=== PATIENT | male | born 1935 | race African-American/Black ===

== ENCOUNTER 2021-09-22 17:41 | Inpatient (IN) | payer MEDICARE, OTHER ==
[~2021-09-22] VITALS: Ht 180.3 cm; Wt 68.0 kg
[2021-09-22 23:02] LABS: BASOPHILS % 0.6 % (0.0-2.0); EOSINOPHILS % 0.1 % (0.0-5.0); HEMATOCRIT. 45.7 % (42.0-52.0); HEMOGLOBIN. 14.9 g/dL (14.0-18.0); LYMPHOCYTES % 19.3 % (20.0-50.0); MEAN PLATELET VOLUME 9.9 fl (7.4-10.4); MONOCYTES % 7.5 % (2.0-8.0); NEUTROPHILS % 72.5 % (40.0-76.0); PLATELET 165 x1000/uL (130-400); RED BLOOD CELL COUNT 5.13 mill/uL (4.7-6.1); RED CELL DISTRIBUTION WIDTH 13.1 % (11.6-14.6)
[2021-09-22 23:07] LABS: CHLORIDE 102 mEq/L (98-107)
[2021-09-23] MEDS ORDERED: MAGNESIUM CITRATE 300ML SOLUTION PO ONE (00:15)
[2021-09-23] MEDS ORDERED: LORAZEPAM 2MG/ML CPJ IV ONE (00:15)
[2021-09-23] MEDS ORDERED: SODIUM CHLORIDE 0.9% 1,000 ML IV ONE (00:30)
[2021-09-23 01:02] LABS: CLARITY URINE CLEAR (CLEAR); COLOR URINE YELLOW (YELLOW); KETONES URINE TRACE (NEGATIVE); LEUKOCYTE ESTERASE URINE NEGATIVE (NEGATIVE); NITRITE URINE NEGATIVE (NEGATIVE); OCCULT BLOOD URINE NEGATIVE (NEGATIVE); PROTEIN URINE 2+ (NEGATIVE); SPECIFIC GRAVITY URINE 1.012 (1.005-1.030); UROBILINOGEN URINE 0.2 E.U./dL (0.2-1.0)
[2021-09-23] MEDS ORDERED: BISA-81 MT (01:11)
[2021-09-23] MEDS ORDERED: BISACODYL 10MG SUPP PR ONE (01:15)
[2021-09-23] MEDS ORDERED: IOHEXOL-300 100 ML BOTTLE ONE (02:40)
[2021-09-23] MEDS ORDERED: NALOXONE HCL 1 MG/ML 2ML VIAL IV ONE (13:45)
[2021-09-23 16:00] VITALS: BP 174/60
[2021-09-23 16:11] VITALS: BP 174/60
[2021-09-23] MEDS ORDERED: AMLO2.5T45 MT (16:28)
[2021-09-23] MEDS ORDERED: GABA250S2 PO (16:28)
[2021-09-23] MEDS ORDERED: TOPUD MT (16:28)
[2021-09-23 20:00] VITALS: BP 161/59
[2021-09-23] MEDS ORDERED: ACETAMINOPHEN 325MG TABLET PO PRN (20:15)
[2021-09-23] MEDS ORDERED: NALOXONE HCL 0.4MG/ML VIAL IV PRN (20:30)
[2021-09-23] MEDS ORDERED: CLONIDINE 0.2MG TABLET PO PRN (22:45)
[2021-09-24] VITALS: BP 138/63
[2021-09-24] MEDS ORDERED: CLONIDINE 0.2MG TABLET PO SCH
[2021-09-24] MEDS: DEXT 5%/0.45% NACL 1000ML 1,000 ML IV SCH ×3 (00:18→23:08)
[2021-09-24 04:00] VITALS: BP 119/76
[2021-09-24 07:14] LABS: CHLORIDE 103 mEq/L (98-107)
[2021-09-24 07:15] LABS: BASOPHILS % 0.2 % (0.0-2.0); EOSINOPHILS % 0.1 % (0.0-5.0); HEMATOCRIT. 40.9 % (42.0-52.0); HEMOGLOBIN. 13.3 g/dL (14.0-18.0); MEAN CORPUSCULAR HEMOGLOBIN 28.6 pg (28.0-32.0); MEAN CORPUSCULAR VOLUME 87.8 fL (80.0-94.0); MEAN PLATELET VOLUME 10.1 fl (7.4-10.4); MONOCYTES % 8.9 % (2.0-8.0); NEUTROPHILS % 73.8 % (40.0-76.0); PLATELET 173 x1000/uL (130-400); RED BLOOD CELL COUNT 4.66 mill/uL (4.7-6.1)
[2021-09-24 08:00] VITALS: BP 120/66
[2021-09-24] MEDS: ENOXAPARIN 40MG/0.4ML SYR SUBCUT SCH (09:00)
[2021-09-24] MEDS: AMLODIPINE 10MG TABLET PO SCH (10:26)
[2021-09-24] MEDS: HYDROCODONE/ACETAMINOPHEN 5/325MG TABLET PO PRN (10:32)
[2021-09-24 12:00] VITALS: BP 150/61
[2021-09-24] MEDS ORDERED: NA PHOS,M-B/NA PHOS,DI-BA ENEMA 118ML PR NR (12:30)
[2021-09-24] MEDS ORDERED: BISACODYL 10MG SUPP PR NR (12:30)
[2021-09-24 16:00] VITALS: BP 150/82
[2021-09-24 20:00] VITALS: BP_SYST 146; BP_SYST 151; BP_DIAS 62; BP_DIAS 70
[2021-09-25] VITALS: BP 146/70
[2021-09-25 04:00] VITALS: BP 150/82
[2021-09-25 07:19] LABS: BASOPHILS % 0.1 % (0.0-2.0); HEMATOCRIT. 38.3 % (42.0-52.0); HEMOGLOBIN. 12.6 g/dL (14.0-18.0); MEAN PLATELET VOLUME 9.4 fl (7.4-10.4); MONOCYTES % 9.4 % (2.0-8.0); NEUTROPHILS % 75.5 % (40.0-76.0); PLATELET 155 x1000/uL (130-400); RED BLOOD CELL COUNT 4.35 mill/uL (4.7-6.1)
[2021-09-25 07:58] LABS: CHLORIDE 100 mEq/L (98-107)
[2021-09-25 08:00] VITALS: BP 141/70
[2021-09-25] MEDS: AMLODIPINE 10MG TABLET PO SCH (10:04)
[2021-09-25] MEDS: ENOXAPARIN 40MG/0.4ML SYR SUBCUT SCH (10:05)
[2021-09-25] MEDS ORDERED: POTASSIUM CHLORIDE 20MEQ TABLET SR PO NR (10:15)
[2021-09-25] MEDS ORDERED: POTASSIUM CHLORIDE INJ 40 MEQ in DEXT 5% WATER 500 ML IV ONE (10:15)
[2021-09-25] MEDS: MORPHINE SULFATE 2 MG/ML CPJ (NOT FOR IM USE) IV PRN ×2 (10:19→16:27)
[2021-09-25 12:00] VITALS: BP 133/61
[2021-09-25] MEDS: RISPERIDONE 0.5MG TABLET PO SCH (12:15)
[2021-09-25] MEDS: KCL 20MEQ/100ML PREMIX 100 ML IV SCH ×2 (12:15→16:25)
[2021-09-25] MEDS: DEXT 5%/0.45% NACL 1000ML 1,000 ML IV SCH (12:16)
[2021-09-25 16:00] VITALS: BP 149/64
[2021-09-25 20:00] VITALS: BP 108/54
[2021-09-26] VITALS: BP 152/70
[2021-09-26] MEDS: DEXT 5%/0.45% NACL 1000ML 1,000 ML IV SCH (02:11)
[2021-09-26 04:00] VITALS: BP 131/74
[2021-09-26 08:00] VITALS: BP 152/72
[2021-09-26] MEDS: RISPERIDONE 0.5MG TABLET PO SCH (08:37)
[2021-09-26] MEDS: AMLODIPINE 10MG TABLET PO SCH (08:38)
[2021-09-26] MEDS: HYDROCODONE/ACETAMINOPHEN 5/325MG TABLET PO PRN (08:40)
[2021-09-26] MEDS: ENOXAPARIN 40MG/0.4ML SYR SUBCUT SCH (08:43)
[2021-09-26 12:00] VITALS: BP 186/90
[2021-09-26 16:00] VITALS: BP 142/68
[2021-09-26 20:00] VITALS: BP 124/70
[2021-09-27] VITALS: BP 154/73
[2021-09-27 04:00] VITALS: BP 154/66
[2021-09-27] MEDS: DEXT 5%/0.45% NACL 1000ML 1,000 ML IV SCH (04:17)
[2021-09-27] MEDS: MORPHINE SULFATE 2 MG/ML CPJ (NOT FOR IM USE) IV PRN (04:42)
[2021-09-27 08:00] VITALS: BP 158/69
[2021-09-27] MEDS: ENOXAPARIN 40MG/0.4ML SYR SUBCUT SCH (09:22)
[2021-09-27] MEDS: RISPERIDONE 0.5MG TABLET PO SCH (09:22)
[2021-09-27] MEDS: AMLODIPINE 10MG TABLET PO SCH (09:22)
[2021-09-27 12:00] VITALS: BP 129/55
[2021-09-27 16:00] VITALS: BP 133/57
[2021-09-27 20:00] VITALS: BP 145/64
[2021-09-27] MEDS: LORAZEPAM 2MG/ML CPJ IM PRN (23:45)
[2021-09-28] VITALS: BP 138/69
[2021-09-28 04:00] VITALS: BP 145/63
[2021-09-28] MEDS: LORAZEPAM 2MG/ML CPJ IM PRN (06:49)
[2021-09-28 08:00] VITALS: BP 118/70
[2021-09-28] MEDS: RISPERIDONE 0.5MG TABLET PO SCH (09:00)
[2021-09-28] MEDS: AMLODIPINE 10MG TABLET PO SCH (09:00)
[2021-09-28] MEDS: ENOXAPARIN 40MG/0.4ML SYR SUBCUT SCH (09:08)
[2021-09-28 12:00] VITALS: BP 140/64
[2021-09-28 16:00] VITALS: BP 139/68
[2021-09-28 20:00] VITALS: BP 92/63
[2021-09-29] VITALS (7 sets, daily range): BP systolic 133–153; BP diastolic 52–66
[2021-09-29] MEDS: ENOXAPARIN 40MG/0.4ML SYR SUBCUT SCH (09:03)
[2021-09-29] MEDS: RISPERIDONE 0.5MG TABLET PO SCH (09:03)
[2021-09-29] MEDS: AMLODIPINE 10MG TABLET PO SCH (09:04)
== END 2021-09-29 22:10 | DRG 388 ==
LOC: ER 17:41 → EDBEDREQSVC 09-23 12:06 → EDBEDREQ 09-23 12:45 → 6EST 09-23 13:36 → ENRESERV 09-23 13:43 → EDBEDREQ 09-23 13:44 → EDBEDREQTM 09-23 13:44 → 6EST 09-23 14:52
PROVIDERS: ADMIT Internal Medicine; ATTEND Internal Medicine
DX: K56.41 Fecal impaction (principal); G92.8 Other toxic encephalopathy; E78.5 Hyperlipidemia, unspecified; F03.90 Unspecified dementia, unspecified severity, without behavioral disturbance, psychotic disturbance, mood disturbance, and anxiety; I10 Essential (primary) hypertension; Z82.49 Family history of ischemic heart disease and other diseases of the circulatory system; Z20.822 Contact with and (suspected) exposure to COVID-19
CPT/HCPCS: 36415; 74018; 74177; 80048; 80053; 81003; 84132; 85025; 87426; 93005; 97162; 99285; J1650; J2060; J2270; J3480; J7030; J7042; Q9967

== ENCOUNTER 2021-11-08 21:22 | Inpatient (IN) | payer MEDICARE, OTHER ==
[~2021-11-08] VITALS: Ht 175.3 cm; Wt 49.4 kg
[~2021-11-08 21:22] MED LIST: AMLO2.5T45 MT; BISA-81 MT; GABA250S2 PO; TOPUD MT
[2021-11-08 23:19] LABS: BASOPHILS % 0.6 % (0.0-2.0); EOSINOPHILS % 0.3 % (0.0-5.0); HEMATOCRIT. 36.2 % (42.0-52.0); HEMOGLOBIN. 11.8 g/dL (14.0-18.0); LYMPHOCYTES % 16.4 % (20.0-50.0); MEAN CORPUSCULAR HEMOGLOBIN 28.8 pg (28.0-32.0); MEAN CORPUSCULAR VOLUME 88.3 fL (80.0-94.0); MEAN PLATELET VOLUME 8.1 fl (7.4-10.4); MONOCYTES % 5.7 % (2.0-8.0); PLATELET 350 x1000/uL (130-400); RED BLOOD CELL COUNT 4.09 mill/uL (4.7-6.1)
[2021-11-08 23:32] LABS: CHLORIDE 103 mEq/L (98-107)
[2021-11-09 06:50] LABS: CLARITY URINE CLEAR (CLEAR); COLOR URINE DARK YELLOW (YELLOW); KETONES URINE TRACE (NEGATIVE); LEUKOCYTE ESTERASE URINE NEGATIVE (NEGATIVE); NITRITE URINE NEGATIVE (NEGATIVE); OCCULT BLOOD URINE NEGATIVE (NEGATIVE); PH URINE 5.5 (4.5-8.0); PROTEIN URINE 2+ (NEGATIVE); SPECIFIC GRAVITY URINE 1.024 (1.005-1.030)
[2021-11-09] MEDS ORDERED: ONDANSETRON HCL 4MG/2ML INJ IV PRN (08:30)
[2021-11-09] MEDS ORDERED: ACETAMINOPHEN 325MG TABLET PO PRN (08:30)
[2021-11-09 11:15] VITALS: BP 161/62
[2021-11-09 12:00] VITALS: BP 161/62
[2021-11-09] MEDS ORDERED: AMLODIPINE 5MG TABLET PO SCH (12:00)
[2021-11-09 16:00] VITALS: BP 143/73
[2021-11-09] MEDS ORDERED: CLONIDINE 0.2MG TABLET PO PRN (16:30)
[2021-11-09] MEDS: RISPERIDONE 0.5MG TABLET PO SCH (16:51)
[2021-11-09] MEDS ORDERED: ENOXAPARIN 40MG/0.4ML SYR SUBCUT SCH (17:00)
[2021-11-09 20:00] VITALS: BP 165/75
[2021-11-10] VITALS: BP 120/63
[2021-11-10] MEDS: LORAZEPAM 2MG/ML CPJ IV PRN (01:09)
[2021-11-10 04:00] VITALS: BP 166/77
[2021-11-10] MEDS: HYDRALAZINE 20MG/ML VIAL IV PRN (07:55)
[2021-11-10 08:00] VITALS: BP 159/74
[2021-11-10] MEDS: RISPERIDONE 0.5MG TABLET PO SCH (10:22)
[2021-11-10] MEDS: AMLODIPINE 10MG TABLET PO SCH (10:22)
[2021-11-10 12:00] VITALS: BP 144/93
[2021-11-10 16:00] VITALS: BP 141/99
[2021-11-10] MEDS: ENOXAPARIN 30MG/0.3ML SYR SUBCUT SCH (18:43)
[2021-11-10 20:00] VITALS: BP 148/80
[2021-11-11] VITALS: BP 164/74
[2021-11-11] MEDS: HYDRALAZINE 20MG/ML VIAL IV PRN (01:03)
[2021-11-11 04:00] VITALS: BP 148/67
[2021-11-11 08:00] VITALS: BP 122/59
[2021-11-11] MEDS: AMLODIPINE 10MG TABLET PO SCH (08:37)
[2021-11-11] MEDS: RISPERIDONE 1MG TABLET PO SCH (08:37)
[2021-11-11 12:00] VITALS: BP 133/68
[2021-11-11] MEDS: ENOXAPARIN 30MG/0.3ML SYR SUBCUT SCH (17:00)
[2021-11-11 20:00] VITALS: BP 107/70
[2021-11-11 20:11] LABS: BASOPHILS % 0.1 % (0.0-2.0); EOSINOPHILS % 0.2 % (0.0-5.0); HEMATOCRIT. 33.5 % (42.0-52.0); HEMOGLOBIN. 10.9 g/dL (14.0-18.0); LYMPHOCYTES % 16.5 % (20.0-50.0); MEAN CORPUSCULAR HEMOGLOBIN 28.4 pg (28.0-32.0); MEAN CORPUSCULAR VOLUME 87.3 fL (80.0-94.0); MEAN PLATELET VOLUME 8.1 fl (7.4-10.4); MONOCYTES % 9.7 % (2.0-8.0); NEUTROPHILS % 73.5 % (40.0-76.0); PLATELET 248 x1000/uL (130-400); RED BLOOD CELL COUNT 3.84 mill/uL (4.7-6.1); RED CELL DISTRIBUTION WIDTH 14.2 % (11.6-14.6)
[2021-11-11 20:52] LABS: CHLORIDE 102 mEq/L (98-107)
[2021-11-11] MEDS: LORAZEPAM 2MG/ML CPJ IV PRN (22:10)
[2021-11-12] VITALS: BP 112/56
[2021-11-12 04:00] VITALS: BP 120/80
[2021-11-12 08:00] VITALS: BP 134/95
[2021-11-12] MEDS: RISPERIDONE 1MG TABLET PO SCH (09:37)
[2021-11-12] MEDS: AMLODIPINE 10MG TABLET PO SCH (09:38)
[2021-11-12] MEDS: LORAZEPAM 2MG/ML CPJ IV PRN (09:59)
[2021-11-12 12:00] VITALS: BP 133/65
[2021-11-12 16:00] VITALS: BP 141/101
[2021-11-12] MEDS: ENOXAPARIN 30MG/0.3ML SYR SUBCUT SCH (16:56)
[2021-11-12 20:00] VITALS: BP 148/78
[2021-11-13] VITALS: BP 146/80
[2021-11-13 04:00] VITALS: BP 163/79
[2021-11-13] MEDS: HYDRALAZINE 20MG/ML VIAL IV PRN (06:04)
[2021-11-13 06:37] LABS: PROTHROMBIN TIME 11.1 sec (9.6-11.0)
[2021-11-13 07:37] LABS: BASOPHILS % 0.2 % (0.0-2.0); EOSINOPHILS % 0.5 % (0.0-5.0); HEMATOCRIT. 35.6 % (42.0-52.0); HEMOGLOBIN. 11.4 g/dL (14.0-18.0); LYMPHOCYTES % 19.2 % (20.0-50.0); MEAN CORPUSCULAR HEMOGLOBIN 28.5 pg (28.0-32.0); MEAN CORPUSCULAR VOLUME 89.2 fL (80.0-94.0); MEAN PLATELET VOLUME 9.4 fl (7.4-10.4); MONOCYTES % 9.2 % (2.0-8.0); NEUTROPHILS % 70.9 % (40.0-76.0); PLATELET 197 x1000/uL (130-400); RED BLOOD CELL COUNT 3.99 mill/uL (4.7-6.1); RED CELL DISTRIBUTION WIDTH 14.5 % (11.6-14.6)
[2021-11-13 08:00] VITALS: BP 143/71
[2021-11-13 08:25] LABS: CHLORIDE 105 mEq/L (98-107)
[2021-11-13] MEDS: RISPERIDONE 1MG TABLET PO SCH (08:38)
[2021-11-13] MEDS: AMLODIPINE 10MG TABLET PO SCH (08:38)
[2021-11-13] MEDS ORDERED: CEFAZOLIN 1000MG PREMIX 50 ML IV SCH (10:00)
[2021-11-13] MEDS: LORAZEPAM 2MG/ML CPJ IV PRN (11:19)
[2021-11-13 12:00] VITALS: BP 147/66
[2021-11-13 16:00] VITALS: BP 142/75
[2021-11-13] MEDS ORDERED: FENTANYL CITRATE/PF 50MCG/ML 2ML VIAL IV PRN (16:10)
[2021-11-13] MEDS ORDERED: MIDAZOLAM HCL 5 MG/5 ML VIAL IV PRN (16:11)
[2021-11-13] MEDS ORDERED: FENTANYL CITRATE/PF 50MCG/ML 2ML VIAL ONE (16:12)
[2021-11-13] MEDS ORDERED: MIDAZOLAM HCL 5 MG/5 ML VIAL ONE ×2 (16:12→16:51)
[2021-11-13] MEDS: ENOXAPARIN 30MG/0.3ML SYR SUBCUT SCH (18:37)
[2021-11-13 20:00] VITALS: BP 145/65
[2021-11-14] VITALS: BP 121/61
[2021-11-14] MEDS: METOCLOPRAMIDE HCL 10MG/2ML VIAL IV SCH ×5 (00:05→17:31)
[2021-11-14 04:00] VITALS: BP 137/85
[2021-11-14] MEDS ORDERED: METOPROLOL TARTRATE 50MG TABLET PO PRN (07:15)
[2021-11-14 08:00] VITALS: BP 109/62
[2021-11-14] MEDS: AMLODIPINE 10MG TABLET PO SCH (08:41)
[2021-11-14] MEDS: RISPERIDONE 1MG TABLET PO SCH (08:56)
[2021-11-14 16:00] VITALS: BP 125/77
[2021-11-14] MEDS: ENOXAPARIN 30MG/0.3ML SYR SUBCUT SCH (17:31)
[2021-11-14 20:00] VITALS: BP 141/93
[2021-11-15] VITALS: BP 120/63
[2021-11-15 04:00] VITALS: BP 135/82
[2021-11-15] MEDS: METOCLOPRAMIDE HCL 10MG/2ML VIAL IV SCH ×4 (06:48→18:11)
[2021-11-15 07:45] LABS: BASOPHILS % 0.1 % (0.0-2.0); EOSINOPHILS % 0.3 % (0.0-5.0); HEMATOCRIT. 33.3 % (42.0-52.0); HEMOGLOBIN. 10.7 g/dL (14.0-18.0); LYMPHOCYTES % 12.9 % (20.0-50.0); MEAN CORPUSCULAR HEMOGLOBIN 28.4 pg (28.0-32.0); MEAN CORPUSCULAR VOLUME 88.5 fL (80.0-94.0); MEAN PLATELET VOLUME 8.7 fl (7.4-10.4); MONOCYTES % 5.6 % (2.0-8.0); NEUTROPHILS % 81.1 % (40.0-76.0); PLATELET 156 x1000/uL (130-400); RED BLOOD CELL COUNT 3.76 mill/uL (4.7-6.1); RED CELL DISTRIBUTION WIDTH 14.4 % (11.6-14.6)
[2021-11-15 07:54] LABS: CHLORIDE 109 mEq/L (98-107)
[2021-11-15 08:00] VITALS: BP 168/78
[2021-11-15] MEDS: AMLODIPINE 10MG TABLET PO SCH (09:10)
[2021-11-15] MEDS: RISPERIDONE 1MG TABLET PO SCH (09:10)
[2021-11-15 12:00] VITALS: BP 142/65
[2021-11-15 16:10] VITALS: BP 100/63
[2021-11-15] MEDS: ENOXAPARIN 30MG/0.3ML SYR SUBCUT SCH (18:11)
[2021-11-15 20:00] VITALS: BP 145/74
[2021-11-16] VITALS: BP 143/65
[2021-11-16 04:00] VITALS: BP 151/68
[2021-11-16 07:08] LABS: BASOPHILS % 0.1 % (0.0-2.0); EOSINOPHILS % 0.1 % (0.0-5.0); HEMATOCRIT. 32.4 % (42.0-52.0); HEMOGLOBIN. 10.4 g/dL (14.0-18.0); LYMPHOCYTES % 14.1 % (20.0-50.0); MEAN CORPUSCULAR HEMOGLOBIN 28.7 pg (28.0-32.0); MEAN CORPUSCULAR VOLUME 89.2 fL (80.0-94.0); MEAN PLATELET VOLUME 9.3 fl (7.4-10.4); MONOCYTES % 6.4 % (2.0-8.0); NEUTROPHILS % 79.3 % (40.0-76.0); PLATELET 146 x1000/uL (130-400); RED BLOOD CELL COUNT 3.63 mill/uL (4.7-6.1); RED CELL DISTRIBUTION WIDTH 14.1 % (11.6-14.6)
[2021-11-16 07:29] LABS: CHLORIDE 110 mEq/L (98-107)
[2021-11-16 08:00] VITALS: BP 126/52
[2021-11-16] MEDS: RISPERIDONE 1MG TABLET PO SCH (08:45)
[2021-11-16] MEDS: AMLODIPINE 10MG TABLET PO SCH (08:46)
[2021-11-16 12:00] VITALS: BP 136/64
[2021-11-16 12:28] VITALS: BP 136/64
== END 2021-11-16 13:32 | DRG 74 ==
LOC: ER 21:22 → MICUSO 11-09 02:16 → 8WST 11-09 11:26
PROVIDERS: ADMIT Internal Medicine; ATTEND Internal Medicine
PROC: 0DH63UZ Insertion of Feeding Device into Stomach, Percutaneous Approach (ICD-10-PCS; principal; 2021-11-13)
PROC: 0DB78ZX Excision of Stomach, Pylorus, Via Natural or Artificial Opening Endoscopic, Diagnostic (ICD-10-PCS; 2021-11-13)
DX: G90.8 Other disorders of autonomic nervous system (principal); E44.1 Mild protein-calorie malnutrition; Z68.1 Body mass index [BMI] 19.9 or less, adult; S00.03XA Contusion of scalp, initial encounter; K29.70 Gastritis, unspecified, without bleeding; R13.10 Dysphagia, unspecified; K31.A0 Gastric intestinal metaplasia, unspecified; D64.9 Anemia, unspecified; E78.00 Pure hypercholesterolemia, unspecified; E78.5 Hyperlipidemia, unspecified; F03.90 Unspecified dementia, unspecified severity, without behavioral disturbance, psychotic disturbance, mood disturbance, and anxiety; Z20.822 Contact with and (suspected) exposure to COVID-19; I10 Essential (primary) hypertension; W18.39XA Other fall on same level, initial encounter; K59.00 Constipation, unspecified; Z91.81 History of falling; Z79.1 Long term (current) use of non-steroidal anti-inflammatories (NSAID); Z79.899 Other long term (current) drug therapy; Y93.89 Activity, other specified; Y92.89 Other specified places as the place of occurrence of the external cause; Y99.8 Other external cause status
CPT/HCPCS: 36415; 71045; 72170; 76705; 80048; 80053; 81003; 83880; 85025; 87426; 88305; 88312; 88313; 93005; 99285; C1893; J0360; J0690; J1650; J2060; J2250; J2765; J3010